=== PATIENT | female | born 1950 | race African-American/Black ===

== ENCOUNTER 2017-05-16 14:51 | Emergency (ER) | payer OTHER ==
[2017-05-16] MEDS ORDERED: DIPHTH,PERTUSS(ACELL),TET 0.5 ML DISP.SYRIN IM ONE (15:08)
--- NOTE | 2017-05-16 15:08 | PDOC ---
History of Present Illness - General Stated Complaint: TETANUS SHOT Time Seen by Provider: 05/16/17 15:07 History Source: Patient Exam Limitations: No Limitations - History of Present Illness Initial Comments: 05/16/17 15:09 CHIEF COMPLAINT: Need tetanus shot HISTORY OF PRESENT ILLNESS: This is a 66 female with a history of NIDDM, HTN, and HLD who presents for a tetanus booster so that she can go back to school. She denies all complaints. Past History - Past Medical History Allergies/Adverse Reactions: Allergies Allergy/AdvReac Type Severity Reaction Status Date / Time No Known Drug Allergies Allergy Verified 06/23/14 16:37 Home Medications: Ambulatory Orders Lisinopril/Hydrochlorothiazide [Lisinopril-Hctz 20-12.5 mg Tab] 1 tab PO DAILY 10/22/12 Metformin HCl [Glucophage] 1,000 mg PO DAILY 10/22/12 Omeprazole Magnesium [Prilosec (OTC)] 20 mg PO DAILY 10/22/12 Pravastatin Sodium [Pravachol -] 1 tab PO DAILY 10/22/12 Sitagliptin Phos/Metformin HCl [Janumet 50-1,000 mg Tablet] 1 each PO DAILY 02/27 Metronidazole [Flagyl -] 500 mg PO TID #39 tablet 06/25/14 Anemia: No Asthma: No Cancer: No Cardiac Disorders: No CVA: No COPD: No CHF: No Dementia: No Diabetes: Yes GI Disorders: Yes (gerd,IBS) Disorders: No HTN: Yes Hypercholesterolemia: Yes Liver Disease: No Seizures: No Thyroid Disease: No - Surgical History Abdominal Surgery: No Appendectomy: No Cardiac Surgery: No Cholecystectomy: No Lung Surgery: No Neurologic Surgery: (EPIDURAL INJECTION) Orthopedic Surgery: No - Suicide/Smoking/Psychosocial Hx Smoking History: Current every day smoker Have you smoked in the past 12 months: Yes Number of Cigarettes Smoked Daily: 15 'Breaking Loose' booklet given: 06/23/14 Hx Alcohol Use: No Drug/Substance Use Hx: No Substance Use Type: None Hx Substance Use Treatment: No Review of Systems - Review of Systems Constitutional: No: Chills, Fever HEENTM: No: Eye Pain, Blurred Vision Respiratory: No: Cough, Shortness of Breath Cardiac (ROS): Yes: Edema. No: Chest Pain *Physical Exam - Physical Exam General Appearance: Yes: Nourished, Appropriately Dressed HEENT: positive: EOMI, TAMIKO Respiratory/Chest: positive: Normal Breath Sounds. negative: Respiratory Distress Medical Decision Making - Medical Decision Making 05/16/17 15:12 A/P: 66 year old female presenting for tetanus vaccine. No complaints. *DC/Admit/Observation/Transfer Diagnosis at time of Disposition: Vaccine for diphtheria-tetanus - Discharge Dispostion Disposition: HOME Condition at time of disposition: Stable Admit: No - Referrals Referrals: Jc Gentile [Primary Care Provider] - - Patient Instructions - Post Discharge Activity
[2017-05-16 15:13] VITALS: BP 131/80; PULSE 80; TEMP 98.1; BMI 27.8
== END 2017-05-16 15:50 | disposition home or self-care (01) ==
LOC: JERFT 14:51
PROC: 3E0234Z Introduction of Serum, Toxoid and Vaccine into Muscle, Percutaneous Approach (ICD-10-PCS; principal; 2017-05-16)
DX: Z23 Encounter for immunization (principal)
CPT/HCPCS: 90715; 99281-25